=== PATIENT | male | born 1960 | race Caucasian/White ===

== ENCOUNTER 2020-07-13 16:54 | Emergency (ER) | payer BC, OTHER ==
[~2020-07-13] VITALS: Ht 182.9 cm; Wt 130.2 kg
[~2020-07-13 16:54] MED LIST: AMLODIPINE BESYL5 MG PO; AMLODIPINE-BEN1 EAC1 PO; HYDROCODON-ACE1 EA11 PO; KETOROLAC TROME10 MG PO; NEURONTIN300 MG PO; ZANAFLEX4 MG PO
== END 2020-07-13 21:30 | disposition home or self-care (01) ==
LOC: ER 17:04
DX: S63.501A Unspecified sprain of right wrist, initial encounter (principal); S80.01XA Contusion of right knee, initial encounter; W01.0XXA Fall on same level from slipping, tripping and stumbling without subsequent striking against object, initial encounter; Y93.01 Activity, walking, marching and hiking; Y92.480 Sidewalk as the place of occurrence of the external cause; I10 Essential (primary) hypertension; E11.9 Type 2 diabetes mellitus without complications; E78.5 Hyperlipidemia, unspecified; J45.909 Unspecified asthma, uncomplicated
CPT/HCPCS: 99283